=== PATIENT | male | born 1980 | race Caucasian/White ===

== ENCOUNTER 2023-02-07 13:16 | Emergency (ER) | payer OTHER ==
[~2023-02-07] VITALS: Ht 162.6 cm; Wt 67.6 kg
[2023-02-07 13:25] VITALS: BP 133/89
[2023-02-07] MEDS ORDERED: ONDANSETRON 4 MG ODT PO ONE (14:10)
[2023-02-07] MEDS ORDERED: KETOROLAC 60 MG/2 ML VIAL IM ONE (14:10)
[2023-02-07] MEDS ORDERED: ONDA8TAB87 PO (14:33)
[2023-02-07] MEDS ORDERED: IBUP-2213 PO (14:33)
== END 2023-02-07 15:25 | disposition home or self-care (01) ==
LOC: MED 13:16
DX: R07.89 Other chest pain (principal); R11.2 Nausea with vomiting, unspecified
CPT/HCPCS: 93005; 96372; 99283; J1885; Q0162